=== PATIENT | female | born 1995 | race Caucasian/White ===

== ENCOUNTER 2020-10-17 15:59 | Emergency (ER) | payer OTHER ==
[~2020-10-17] VITALS: Ht 172.7 cm; Wt 63.5 kg
[2020-10-17 16:16] LABS: URINE BILIRUBIN NEGATIVE (Negative); URINE BLOOD NEGATIVE (Negative); URINE CLARITY SL CLOUDY; URINE COLOR YELLOW; URINE GLUCOSE-RANDOM NEGATIVE (Negative); URINE KETONES NEGATIVE (Negative); URINE LEUKOCYTES-REFLEX 1+ (Negative); URINE PROTEIN NEGATIVE (Negative); URINE SPECIFIC GRAVITY 1.025 (1.005-1.030); URINE UROBILINOGEN 0.2 E.U./dl (0.2-1.0)
[2020-10-17 16:17] LABS: URINE NITRITE-REFLEX POSITIVE (Negative)
[2020-10-17 16:31] LABS: ABSOLUTE EOSINOPHILS 0.1 thou/uL (0.0-0.7); ABSOLUTE MONOCYTES 0.5 thou/uL (0.0-1.2); ABSOLUTE NEUTROPHILS 5.3 thou/uL (1.6-8.1); BASOPHILS 0.6 %; EOSINOPHILS 1.6 %; HEMATOCRIT 36.5 % (37.0-47.0); HEMOGLOBIN 12.4 gm/dL (12.0-15.0); LYMPHOCYTES 25.1 %; MCH 30.3 pg (26.0-34.0); MCHC 34.1 g/dL (28.0-37.0); MCV 88.9 fL (80.0-100.0); MONOCYTES 5.9 %; MPV 7.6 fl. (7.2-11.1); NUCLEATED RBCS 0 /100WBC; PLATELET COUNT* 299 thou/uL (150-400); POLYS 66.8 %; RDW-CV 12.9 % (10.5-14.5); WBC 7.9 thou/uL (4.0-11.0)
[2020-10-17 16:44] LABS: CREATININE 0.8 mg/dL (0.6-1.3); POTASSIUM 3.5 mmol/L (3.5-5.1)
[2020-10-17 16:49] LABS: ALBUMIN 4.1 g/dL (3.4-5.0); TOTAL BILIRUBIN 0.5 mg/dL (<0.1-1.0); TOTAL PROTEIN 7.8 g/dL (6.4-8.2)
[2020-10-17 16:54] LABS: MUCUS >6 Heavy strn/LPF (None Seen); SQUAMOUS >10 Many /LPF (0-3)
[2020-10-17 16:55] LABS: BACTERIA-REFLEX >30 Many /HPF (None Seen); CASTS None Seen /LPF (None Seen); CRYSTALS None Seen /LPF (None Seen); URINE WBC-REFLEX 6-15 Few /HPF (0-5)
[2020-10-17 16:56] LABS: URINE RBC 0-2 Rare /HPF (0-2)
[2020-10-17] MEDS ORDERED: AMOXICILLIN 50500 MG PO (18:28)
[2020-10-17 18:45] VITALS: BP 122/76
== END 2020-10-17 18:46 | disposition home or self-care (01) ==
LOC: M.ERS 15:59
PROVIDERS: Physician Assistant
DX: O23.41 Unspecified infection of urinary tract in pregnancy, first trimester (principal); Z3A.01 Less than 8 weeks gestation of pregnancy